=== PATIENT | male | born 1945 | race Caucasian/White ===

== ENCOUNTER 2018-06-27 21:23 | Inpatient (IN) | payer MEDICARE ==
[~2018-06-27] VITALS: Ht 182.9 cm; Wt 112.5 kg
[2018-06-27 21:38] VITALS: Ht 182.9 cm; Wt 112.5 kg
[2018-06-27 21:48] LABS: BASOPHIL % 0.1 % (0-2); PLATELET COUNT 208 x10^3mcL (130-400); RED CELL DISTRIBUTION WIDTH 14.5 % (11.5-14.5)
[2018-06-27 21:58] LABS: CALCIUM 8.8 mg/dL (8.5-10.1); CHLORIDE SERUM 99 mmol/L (98-107); CREATININE SERUM 2.7 mg/dL (0.7-1.3); GLUCOSE SERUM 155 mg/dL (74-106); POTASSIUM SERUM 4.1 mmol/L (3.5-5.1); SODIUM SERUM 133 mmol/L (136-145)
[2018-06-27 22:02] LABS: ALKALINE PHOSPHATASE 85 U/L (46-116); ALT/SGPT 25 U/L (16-63); AST/SGOT 23 U/L (15-37); BILIRUBIN TOTAL 0.4 mg/dL (0.20-1.00); TOTAL PROTEIN, SERUM 7.3 g/dL (6.4-8.2)
[2018-06-27 22:05] LABS: ALBUMIN 2.5 g/dL (3.4-5.0)
[2018-06-28] MEDS ORDERED: HUMALOG100 UNIT/1 (01:00)
[2018-06-28] MEDS ORDERED: LATANOPROST2.5 ML OP (01:00)
[2018-06-28] MEDS ORDERED: HYDRALAZINE HY100 MG (01:01)
[2018-06-28] MEDS ORDERED: ASPIRIN325 M1 PO (01:01)
[2018-06-28] MEDS ORDERED: LIPI20 (01:01)
[2018-06-28] MEDS ORDERED: LOSARTAN POTASS25 M1 (01:02)
[2018-06-28] MEDS ORDERED: METOPROLOL TART50 MG (01:02)
[2018-06-28] MEDS ORDERED: NOR10 (01:03)
[2018-06-28] MEDS ORDERED: AMERINET CHOICE1 PD2 (01:04)
[2018-06-28] MEDS ORDERED: CLONIDINE0.2 M1 (01:04)
[2018-06-28 01:50] LABS: MAGNESIUM 2.2 mg/dL (1.8-2.4); PHOSPHOROUS 3.3 mg/dL (2.5-4.9)
[2018-06-28 01:57] LABS: CHOLESTEROL/HDL RATIO 3.5
[2018-06-28 01:58] VITALS: BP 172/64
[2018-06-28 04:40] VITALS: BP 159/65
[2018-06-28 09:26] VITALS: BP 171/71
[2018-06-28 12:49] VITALS: BP 161/65
[2018-06-28 16:27] LABS: microscopic required? NO
[2018-06-28 16:45] LABS: UA SPECIFIC GRAVITY 1.015 (1.005-1.035); urine erythrocyte NEGATIVE (NEGATIVE)
[2018-06-28 17:23] VITALS: BP 161/68
[2018-06-28 20:44] VITALS: BP 147/65
[2018-06-29] VITALS (7 sets, daily range): BP systolic 143–171; BP diastolic 52–68
[2018-06-29 10:09] LABS: BASOPHIL % 0.4 % (0-2); PLATELET COUNT 182 x10^3mcL (130-400)
[2018-06-29 10:12] LABS: RED CELL DISTRIBUTION WIDTH 14.8 % (11.5-14.5)
[2018-06-29 10:25] LABS: CALCIUM 8.5 mg/dL (8.5-10.1); CARBON DIOXIDE 25.1 mmol/L (21-32); CHLORIDE SERUM 99 mmol/L (98-107); CREATININE SERUM 2.9 mg/dL (0.7-1.3); GLUCOSE SERUM 153 mg/dL (74-106); PHOSPHOROUS 3.9 mg/dL (2.5-4.9); POTASSIUM SERUM 4.2 mmol/L (3.5-5.1); SODIUM SERUM 133 mmol/L (136-145)
[2018-06-30 04:59] VITALS: BP 184/70
[2018-06-30 05:59] VITALS: BP 118/61
[2018-06-30 07:21] LABS: CALCIUM 8.7 mg/dL (8.5-10.1); CARBON DIOXIDE 26.8 mmol/L (21-32); CHLORIDE SERUM 101 mmol/L (98-107); CREATININE SERUM 2.8 mg/dL (0.7-1.3); GLUCOSE SERUM 131 mg/dL (74-106); PHOSPHOROUS 3.7 mg/dL (2.5-4.9); SODIUM SERUM 135 mmol/L (136-145)
[2018-06-30 07:24] LABS: BASOPHIL % 0.4 % (0-2); PLATELET COUNT 183 x10^3mcL (130-400)
[2018-06-30 07:25] LABS: RED CELL DISTRIBUTION WIDTH 14.9 % (11.5-14.5)
[2018-06-30 09:30] VITALS: BP 166/58
[2018-06-30 17:43] VITALS: BP 160/57
[2018-06-30 21:06] VITALS: BP 162/58
[2018-07-01 06:17] VITALS: BP 158/61
[2018-07-01 09:11] VITALS: BP 157/56
[2018-07-01 13:06] VITALS: BP 166/54
[2018-07-01 17:33] VITALS: BP 169/70
[2018-07-01 21:55] VITALS: BP 168/71
[2018-07-02 05:46] VITALS: BP 165/58
[2018-07-02 06:32] LABS: BASOPHIL % 0.3 % (0-2); PLATELET COUNT 186 x10^3mcL (130-400)
[2018-07-02 06:33] LABS: RED CELL DISTRIBUTION WIDTH 14.9 % (11.5-14.5)
[2018-07-02 06:39] LABS: CHLORIDE SERUM 100 mmol/L (98-107); GLUCOSE SERUM 120 mg/dL (74-106); POTASSIUM SERUM 3.4 mmol/L (3.5-5.1); SODIUM SERUM 139 mmol/L (136-145)
[2018-07-02 10:30] VITALS: BP 153/49
[2018-07-02 13:37] VITALS: BP 152/58
[2018-07-02 17:30] VITALS: BP 175/66
[2018-07-02 22:06] VITALS: BP 124/64
[2018-07-03 05:59] VITALS: BP 175/69
[2018-07-03 08:14] VITALS: BP 136/68
[2018-07-03 12:16] VITALS: BP 144/84
[2018-07-03 16:35] VITALS: BP 153/50
[2018-07-03 19:45] VITALS: BP 153/50
== END 2018-07-03 20:21 | disposition home health service (06) | DRG 682 ==
LOC: ED 21:23 → DU 06-28 00:49
PROVIDERS: Emergency Medicine; Family Medicine; General Practice
DX: N17.0 Acute kidney failure with tubular necrosis (principal); J96.01 Acute respiratory failure with hypoxia; E43 Unspecified severe protein-calorie malnutrition; I50.33 Acute on chronic diastolic (congestive) heart failure; D68.59 Other primary thrombophilia; I11.0 Hypertensive heart disease with heart failure; D64.9 Anemia, unspecified; Z95.1 Presence of aortocoronary bypass graft; Z79.82 Long term (current) use of aspirin; Z79.4 Long term (current) use of insulin; Z79.899 Other long term (current) drug therapy; Z87.891 Personal history of nicotine dependence; Z68.30 Body mass index [BMI] 30.0-30.9, adult; E11.40 Type 2 diabetes mellitus with diabetic neuropathy, unspecified; Z89.022 Acquired absence of left finger(s)
CPT/HCPCS: 78598; 82962; 83880; 85378; A9540; J1650; J1817; J1940; J2543; J2930; J3490; J7030; J7613; J7620; J7644; Q0092